=== PATIENT | male | born 1940 | race Caucasian/White ===

== ENCOUNTER 2020-12-06 10:45 | Emergency (ER) | payer MEDICARE, SELFPAY ==
[2020-12-06] VITALS (27 sets, daily range): BP systolic 172–211; BP diastolic 84–111; PULSE 70–101; RESP 17–27; TEMP 36.4–36.6; O2SAT 90–98
--- NOTE | 2020-12-06 10:55 | ECG_ITS ---
Measurements Intervals [place] Rate: 84 P: 167 AK: 182 QRS: 197 QRSD: 151 T: 173 QT: 420 QTc: 498 Interpretive Statements SINUS RHYTHM LIMB LEAD REVERSAL RIGHT BUNDLE BRANCH BLOCK CONSIDER INFERIOR INFARCT, AGE INDETERMINATE ABNORMAL ECG Electronically Signed On 12-06-2020 11:49:31 CDT by Sam Harper D.O.
--- NOTE | 2020-12-06 11:34 | PC.NURSE ---
Pt attempting to provide urine sample at this time.
[2020-12-06 11:40] LABS: Basophils Percent Auto 0.4 % (0.2-1.2); Eosinophils Absolute Auto 0.1 K/mm3 (0-0.3); Eosinophils Percent Auto 1.2 % (0-4.4); Immature Granulocyte Absolute 0.02 K/mm3 (0.00-0.031); Immature Granulocyte Percent A 0.4 % (0-0.5); Lymphocytes Absolute Auto 1.12 K/mm3 (0.9-3.2); Lymphocytes Percent Auto 21.8 % (18.3-44.2); Mean Corpuscular HGB Conc 31.6 g/dl (32-36); Mean Corpuscular Hemoglobin 28.4 pg (26-34); Monocytes Absolute Auto 0.9 K/mm3 (0.1-0.6); Neutrophils Percent Auto 59.2 % (45.5-73.1); Platelet Count Result 204 k/mm3 (150-375); Red Blood Count 4.22 M/mm3 (4.6-6.20); Red Cell Distribution Width 13.7 % (11.5-14.5); White Blood Count 5.1 K/mm3 (4.5-10.0)
[2020-12-06 11:51] LABS: Alanine Aminotransferase 23 U/L (4-50); Albumin Level 3.8 g/dL (3.5-5.1); Alkaline Phosphatase 120 U/L (38-126); Anion Gap 7 mmol/L (8-16); Aspartate Amino Transferase 29 U/L (17-59); Bilirubin,Total 0.4 mg/dL (0.2-1.3); Blood Urea Nitrogen 9 mg/dL (9-20); Calcium 8.9 mg/dL (8.4-10.2); Carbon Dioxide 32 mmol/L (22-30); Chloride 97 mmol/L (98-107); Estimated CRCL calculation 75 ml/min; Estimated Glomerular Filt Rate > 60; Glucose 110 mg/dL (65-110); Potassium 3.9 mmol/L (3.4-5.0); Sodium 136 mmol/L (137-145)
[2020-12-06 12:12] LABS: Add Urine Microscopic? YES; Appearance Urine Clear (Clear); Bacteria Urine Trace /hpf; Bilirubin Urine Negative (Negative); Blood Urine Negative (Negative); Color Urine Yellow (Yellow); Glucose Urine UA Negative (Negative); Ketones Urine Negative (Negative); Leukocyte Esterase Ur Negative LEU/UL (Negative); Nitrate Urine Negative (Negative); Protein Urine 1+ mg/dL (Negative); RBC Urine 0-2 /hpf (0-2); Specific Grav Ur 1.008 (1.001-1.035); Squamous Epithelial Cell Urine Rare /hpf (Few); Urobilinogen Urine Negative mg/dL (<2.0); WBC Urine 0-3 /hpf
--- NOTE | 2020-12-06 12:16 | ED.GENADULT ---
HPI - General Adult General Chief complaint: Weakness Stated complaint: weak Time Seen by Provider: 12/06/20 11:19 Source: patient History of Present Illness HPI narrative: Patient is a 80 y/o male complaining of feeling sweaty prior to arrival. He also feels weak. He states that he was just sitting there when it occurred. There is no known alleviating or exacerbating factor, but it resolved spontaneously after 10-15 minutes. He has no chest pain or SOB. Related Data Home Medications Medication Instructions Recorded Confirmed allopurinol 12/06/20 atorvastatin 12/06/20 calcitonin (salmon) 12/06/20 duloxetine mg PO 12/06/20 fexofenadine mg 12/06/20 finasteride mg 12/06/20 levothyroxine 12/06/20 losartan 12/06/20 metformin mg 12/06/20 midodrine mg 12/06/20 primidone 12/06/20 12/06/20 Allergies Allergy/AdvReac Type Severity Reaction Status Date / Time No Known Allergies Allergy Verified 12/06/20 11:35 Review of Systems Constitutional: Constitutional: Reports as per HPI, Denies chills, Reports excessive sweating, Denies fever(s), Denies headache(s) and Denies weakness Eyes: Eyes: Denies blurry vision ENT: Denies headache(s) and Denies neck pain Cardiovascular: Cardiovascular: Denies chest pain and Denies dyspnea Respiratory: Respiratory: Denies cough and Denies dyspnea Gastrointestinal: Gastrointestinal: Denies abdominal pain, Denies diarrhea, Denies nausea and Denies vomiting Genitourinary: Genitourinary: Denies hematuria and Denies dysuria Musculoskeletal: Musculoskeletal: Denies back pain and Denies neck pain Neurologic: Denies headache(s) and Denies weakness [facility] Social History Social History Gender identity (if verbalized by the patient): Male Exam Const: General: no acute distress and well developed Orientation/consciousness: oriented to person, oriented to place, oriented to time and patient oriented x3 HENMT: Head: normocephalic Ears: external ears normal General nose exam: Normal external nose present Eyes: General: appearance normal, both eyes and all related structures Conjunctivae: conjunctivae normal Neck: Neck: normal visual inspection and full ROM Chest: Chest palpation & inspection: normal inspection of the chest and no tenderness Resp: Effort & Inspection: normal respiratory effort Auscultation: clear to auscultation bilaterally Cardio: Rate: regular rate Rhythm: regular rhythm GI: GI Palp: No abdominal tenderness and Yes Soft to palpation Skin: General skin exam: normal color and turgor normal Neuro: General: oriented to person, oriented to place, oriented to time and patient oriented x3 Cognition (Neuro): normal cognition Extrem: General: normal to inspection, full ROM and no pedal edema Psych: Appearance: grossly normal Mental Status: mental status grossly normal Affect: normal affect Course Vital Signs Vital signs: Vital Signs Temperature 36.6 C 12/06/20 10:46 Pulse Rate 87 12/06/20 10:46 Respiratory Rate 27 H 12/06/20 10:46 Blood Pressure 172/88 H 12/06/20 10:46 Pulse Oximetry 95 12/06/20 10:46 Temperature 36.6 C 12/06/20 10:46 Pulse Rate 74 12/06/20 13:47 Respiratory Rate 22 H 12/06/20 13:47 Blood Pressure 199/87 H 12/06/20 13:47 Pulse Oximetry 95 12/06/20 13:47 Medical Decision Making Vital Signs Vital Signs: Vital Signs Temperature 36.6 C 12/06/20 10:46 Pulse Rate 87 12/06/20 10:46 Respiratory Rate 27 H 12/06/20 10:46 Blood Pressure 172/88 H 12/06/20 10:46 Pulse Oximetry 95 12/06/20 10:46 Temperature 36.6 C 12/06/20 10:46 Pulse Rate 74 12/06/20 13:47 Respiratory Rate 22 H 12/06/20 13:47 Blood Pressure 199/87 H 12/06/20 13:47 Pulse Oximetry 95 12/06/20 13:47 Lab Data Result diagrams: 12/06/20 11:33 12/06/20 11:33 Labs: Lab Results 12/06/20 12/06/20 12/06/20 Range/Unit
[2020-12-06 12:34] LABS: Troponin I < 0.012 ng/mL (0.000-0.034)
[2020-12-06 15:55] LABS: Troponin I < 0.012 ng/mL (0.000-0.034)
--- NOTE | 2020-12-06 16:45 | PC.NURSE ---
assumed care at 1645, pt awaiting transport back to [facility]
--- NOTE | 2020-12-06 17:19 | PC.NURSE ---
made contact with jerry uribe and ron to transfer pt to [facility] in [place]. companies declined. contacted [facility] and they accepted
== END 2020-12-06 21:08 ==
PROVIDERS: Emergency Provider Emergency Medicine; PCP Family Medicine
DX: R53.1 Weakness (principal); R61 Generalized hyperhidrosis; I45.10 Unspecified right bundle-branch block; R94.31 Abnormal electrocardiogram [ECG] [EKG]
CPT/HCPCS: 36415; 80053; 81001; 84484; 85025; 93005; 99284